=== PATIENT | female | born 1980 | race Caucasian/White ===

== ENCOUNTER 2017-01-28 10:32 | Emergency (ER) | payer BC ==
--- NOTE | ~2017-01-28 | US85 ---
[facility] A Service of [facility] RADIOLOGY TEXT RESULTS PATIENT: MC HOLCOMB LOCATION: SED : 76 UNIT #: [id number] AGE: [address]: Kentrell Adames MD SEX: F ORDER DR: [id number] [place] [id number] E MR#: [id number] Acc #: [id number] NAME: MC HOLCOMB : 1980 SEX: F STUDY DATE/TIME: 01/28/2017 12:07 UNIT: SED ROOM: STUDY DESCRIPTION: [facility] or [facility] Attending Physician: Kentrell Adames M.D. Ordering Physician: Kentrell Adames M.D. MEDICAL IMAGING REPORT This report is preliminary unless electronic signature is present. EXAM Left lower extremity venous duplex 01/28/2017 HISTORY Left calf edema and redness beginning last night. Evaluate for deep vein thrombosis. TECHNIQUE Venous ultrasound examination of the left lower extremity was performed using grayscale, spectral Doppler and color flow Doppler imaging. FINDINGS The examination is negative. There is no evidence of left lower extremity deep venous thrombus from the groin to the lower calf. Visualized greater saphenous vein is also patent. IMPRESSION Negative examination. No evidence of left lower extremity deep venous thrombosis. Dictated by... Rober Phillips M.D. THIS IS AN ELECTRONICALLY VERIFIED REPORT Rober Phillips M.D. at 01/29/2017 7:49 AM KRT/rnr TD: 01/28/2017 14:18 JOB #: [id number] MEDICAL IMAGING REPORT [facility] A Service [facility] RADIOLOGY TEXT RESULTS PATIENT: MC HOLCOMB LOCATION: SED : 76 UNIT #: [id number] AGE: [address]: Kentrell Adames MD SEX: F ORDER DR: Page 1 of 1
[~2017-01-28 10:32] MED LIST: KEFLEX500 M1 PO; PHENERGAN W/CO120 ML PO
[2017-01-28] MEDS ORDERED: METFORMIN PO (10:41)
[2017-01-28] MEDS ORDERED: AMARYL2 MG PO (10:41)
[2017-01-28] MEDS ORDERED: LASIX PO (10:42)
[2017-01-28] MEDS ORDERED: INVOKANA300 MG PO (10:42)
== END 2017-01-28 13:20 | disposition home or self-care (01) ==
LOC: SED 10:32
DX: L03.116 Cellulitis of left lower limb (principal); F17.210 Nicotine dependence, cigarettes, uncomplicated; Z79.899 Other long term (current) drug therapy
CPT/HCPCS: 93971; 99283